=== PATIENT | female | born 2000 | race African-American/Black ===

== ENCOUNTER 2020-12-16 00:05 | Inpatient (IN) | payer OTHER ==
[2020-12-16 00:58] VITALS: BMI 34.7
[2020-12-16 01:37] LABS: Amnisure Test RUPTURE DETECTED (No Rupture)
[2020-12-16 02:23] LABS: Hemoglobin 11.7 g/dL (12.0-15.5); Mean Corpuscular HGB CONC 33.9 g/dL (32.0-36.0); Mean Corpuscular Hemoglobin 32.7 pg (27.0-33.0); Mean Corpuscular Volume 96.4 fl (81.6-98.3); Mean Platelet Volume 12.6 fl (7.4-10.4); Platelet Count 145 10x3/uL (150-450); RBC Distribution Width 12.3 % (11.5-14.5); Red Blood Cell (RBC) Count 3.58 10x6/uL (3.90-5.03); White Blood Cell (WBC) Count 12.1 10x3/uL (3.5-10.5)
[2020-12-16] MEDS ORDERED: Penicillin G Potassium 5 MILL.UNITS VIAL ONE (02:43)
[2020-12-16 02:52] LABS: Syphilis Antibody Nonreactive (Nonreactive); Syphilis Antibody Index 0.04 S/CO (<1.00 Non-Reactive)
[2020-12-16 02:54] LABS: Hep B Surf Ag Non-Reactive S/CO (NonReactive)
[2020-12-16 02:57] LABS: HBSAg Index 0.26 S/CO (0-0.99)
[2020-12-16] MEDS ORDERED: Ondansetron PF 4 MG/2 ML Vial ONE (03:56)
[2020-12-16] MEDS ORDERED: NS w/ Oxytocin 30 units 500 ML ONE (04:32)
[2020-12-16] MEDS ORDERED: Methylergonovine 0.2 MG/ML VIAL IM PRN (06:59)
[2020-12-16] MEDS ORDERED: Misoprostol 200 MCG TAB RC PRN (06:59)
[2020-12-16] MEDS ORDERED: Carboprost 250 MCG/ML AMP IM PRN (06:59)
[2020-12-16] MEDS ORDERED: NS w/ Oxytocin 30 units 500 ML IVPB SCH (07:00)
[2020-12-16] MEDS ORDERED: NS w/ Oxytocin 30 units 500 ML IV SCH ×3 (07:00→18:45)
[2020-12-16] MEDS ORDERED: Ibuprofen 800 MG TAB PO PRN (07:00)
[2020-12-16] MEDS ORDERED: Lidocaine 1% (PF) 30 ML VIAL SC PRN (07:00)
[2020-12-16] MEDS ORDERED: HYDROcodone/Acetaminophen 5/325 mg Tablet PO PRN ×4 (07:00→17:18)
[2020-12-16] MEDS ORDERED: Acetaminophen 500 MG TAB PO PRN (07:15)
[2020-12-16] MEDS ORDERED: Meperidine HCl/PF 25 MG/ML VIAL IM/IV PRN (07:15)
[2020-12-16] MEDS ORDERED: Ondansetron PF 4 MG/2 ML Vial IVP PRN ×3 (07:15→17:18)
[2020-12-16] MEDS ORDERED: Promethazine HCl 25 MG/ML VIAL IM PRN ×2 (07:15→10:14)
[2020-12-16] MEDS ORDERED: hydrALAZINE 20 MG/ML VIAL SLOW IVP PRN ×2 (07:15→17:18)
[2020-12-16] MEDS ORDERED: Butorphanol Tartrate 1 MG/ML VIAL SLOW IVP PRN (07:15)
[2020-12-16] MEDS ORDERED: Zolpidem Tartrate 5 MG TAB PO PRN (07:15)
[2020-12-16] MEDS ORDERED: Penicillin G Potassium 5 MILL.UNITS in Sodium Chloride 0.9% 100 ML IVPB SCH (07:30)
[2020-12-16] MEDS ORDERED: Fentanyl 4 mcg/Bup 0.1% Cadd 100 ML ONE ×2 (09:24→16:09)
[2020-12-16] MEDS: Lactated Ringer's 1,000 ML IV SCH ×3 (09:38→15:07)
[2020-12-16] MEDS ORDERED: Acetaminophen 325 MG TAB PO PRN ×2 (10:14→22:48)
[2020-12-16] MEDS ORDERED: Naloxone HCl 0.4 mg/ml Vial IVP PRN ×2 (10:14)
[2020-12-16] MEDS ORDERED: Lactated Ringer's 500 ML IV PRN (10:14)
[2020-12-16] MEDS ORDERED: diphenhydrAMINE 50 MG/ML VIAL IVP PRN (10:14)
[2020-12-16] MEDS ORDERED: Communication Order-Pharmacy FS SCH (10:15)
[2020-12-16] MEDS ORDERED: Fentanyl 4 mcg/Bupivacaine 0.1% Cassette 100 ML EPIDURAL SCH (10:15)
[2020-12-16] MEDS ORDERED: ePHEDrine Sulfate 50 MG/10 ML VIAL SLOW IVP PRN (10:33)
[2020-12-16] MEDS ORDERED: PENICILLIN IVPB SCH (11:30)
[2020-12-16] MEDS: PENICILLIN IVPB SCH ×2 (11:30→15:30)
[2020-12-16] MEDS: SODIUM CHLORIDE IVPB SCH ×2 (11:30→15:30)
[2020-12-16] MEDS ORDERED: SODIUM CHLORIDE IVPB SCH (11:30)
[2020-12-16] MEDS ORDERED: Ampicillin 2 GM in Sodium Chloride 0.9% 100 ML IVPB SCH (16:00)
[2020-12-16 16:51] LABS: SARS-CoV-2 PCR by NAA Not Detected (NotDetected)
[2020-12-16] MEDS ORDERED: Preparation H Ointment 28 GM TUBE PR PRN (17:18)
[2020-12-16] MEDS ORDERED: diphenhydrAMINE 25 MG CAP PO PRN (17:18)
[2020-12-16] MEDS ORDERED: Adacel (T-DAP) 0.5 ML SYRINGE IM ONE (17:18)
[2020-12-16] MEDS ORDERED: Benzocaine-Menthol 82.5 ML CAN TOP PRN (17:18)
[2020-12-16] MEDS ORDERED: Misoprostol 200 MCG TAB VAG PRN (17:18)
[2020-12-16] MEDS ORDERED: Bisacodyl 10 MG SUPP PR PRN (17:18)
[2020-12-16] MEDS ORDERED: Lanolin Ointment 7 GM TUBE TOP PRN (17:18)
[2020-12-16] MEDS ORDERED: Milk Of Magnesia 30 ML UDCUP PO PRN (17:18)
[2020-12-16] MEDS ORDERED: Ibuprofen 800 MG TAB PO SCH (22:00)
[2020-12-16] MEDS: Ampicillin/Sulbactam 3 GM in Sodium Chloride 0.9% 100 ML IVPB SCH (22:24)
[2020-12-16] MEDS: Docusate Calcium (SURFAK) 240 MG CAP PO SCH (22:25)
[2020-12-17] MEDS: Ibuprofen 800 MG TAB PO SCH ×4 (02:00→21:00)
[2020-12-17] MEDS: Ampicillin/Sulbactam 3 GM in Sodium Chloride 0.9% 100 ML IVPB SCH (04:50)
[2020-12-17 07:25] LABS: Hemoglobin 10.5 g/dL (12.0-15.5); Mean Corpuscular HGB CONC 32.9 g/dL (32.0-36.0); Mean Corpuscular Hemoglobin 32.9 pg (27.0-33.0); Mean Platelet Volume 12.6 fl (7.4-10.4); Platelet Count 133 10x3/uL (150-450); RBC Distribution Width 12.2 % (11.5-14.5); Red Blood Cell (RBC) Count 3.19 10x6/uL (3.90-5.03); White Blood Cell (WBC) Count 17.3 10x3/uL (3.5-10.5)
[2020-12-17] MEDS: Prenatal Vitamin 1 TAB PO SCH (09:37)
[2020-12-17] MEDS: Docusate Calcium (SURFAK) 240 MG CAP PO SCH ×2 (09:37→21:03)
[2020-12-17] MEDS: Ferrous Sulfate 325 MG TAB PO SCH ×2 (09:38→17:18)
[2020-12-18] MEDS: Ibuprofen 800 MG TAB PO SCH ×2 (05:00→11:37)
[2020-12-18 07:56] VITALS: BP 127/77; TEMP 98
[2020-12-18] MEDS: Docusate Calcium (SURFAK) 240 MG CAP PO SCH (09:03)
[2020-12-18] MEDS: Prenatal Vitamin 1 TAB PO SCH (09:03)
[2020-12-18] MEDS: Ferrous Sulfate 325 MG TAB PO SCH (09:22)
== END 2020-12-18 15:00 | disposition home or self-care (01) | DRG 807 ==
LOC: CSHLD/OP 00:05 → CSHLD 04:14 → CSHPP 22:04
PROVIDERS: ADMIT Obstetrics & Gynecology; ATTEND Obstetrics & Gynecology
PROC: 10E0XZZ Delivery of Products of Conception, External Approach (ICD-10-PCS; principal; 2020-12-17)
DX: O99.824 Streptococcus B carrier state complicating childbirth (principal); Z37.0 Single live birth; O69.81X0 Labor and delivery complicated by cord around neck, without compression, not applicable or unspecified; Z3A.38 38 weeks gestation of pregnancy; Z20.822 Contact with and (suspected) exposure to COVID-19
CPT/HCPCS: 36415; 51702; 84112; 85027; 86780; 86850; 86900; 86901; 87340; 87635; 99285; J0290; J0295; J0595; J2405; J2540; J3490; U0003; U0005